=== PATIENT | male | born 1950 | race Caucasian/White ===

== ENCOUNTER 2020-02-02 13:26 | Outpatient (CLI) | payer MEDICARE ==
[~2020-02-02] VITALS: Ht 188 cm; Wt 185.7 kg
[2020-02-02 13:48] VITALS: BP 150/85; PULSE 64; TEMP 97.9
[2020-02-02] MEDS ORDERED: BACTRIM DS 8001 TAB PO (14:08)
[2020-02-02] MEDS ORDERED: FISH OIL1000 MG PO (14:09)
[2020-02-02] MEDS ORDERED: ONE-A-DAY ESSE1 EACH PO (14:09)
[2020-02-02] MEDS ORDERED: CUBICIN 500MG500 MG IV (14:09)
[2020-02-02] MEDS ORDERED: TRULICITY0.75 MG/0. SQ (14:10)
[2020-02-02] MEDS ORDERED: VITAMIN D3400 I1 PO (14:14)
[2020-02-02] MEDS ORDERED: LASIX 80MG TABL80 MG PO (14:15)
[2020-02-02] MEDS ORDERED: AVAPRO300 M1 PO (14:15)
[2020-02-02] MEDS ORDERED: GLUCOPHAGE500 MG/TAB PO (14:15)
[2020-02-02] MEDS ORDERED: ZOCOR 20MG20 MG PO (14:16)
[2020-02-02] MEDS ORDERED: COREG 25MG25 MG/TAB PO (14:35)
[2020-02-02] MEDS ORDERED: TRESIBA FL200 UNIT/1 SQ (14:36)
--- NOTE | 2020-02-02 16:00 | NUR ---
Pt assisted out to 's car by wheelchair with personal belongings and PICC information.
== END 2020-02-02 16:08 | disposition home or self-care (01) ==
LOC: EUO 13:26
DX: Z45.2 Encounter for adjustment and management of vascular access device (principal); E11.621 Type 2 diabetes mellitus with foot ulcer; G62.9 Polyneuropathy, unspecified; M86.9 Osteomyelitis, unspecified; E11.42 Type 2 diabetes mellitus with diabetic polyneuropathy; E11.69 Type 2 diabetes mellitus with other specified complication; L97.509 Non-pressure chronic ulcer of other part of unspecified foot with unspecified severity; Z79.01 Long term (current) use of anticoagulants
CPT/HCPCS: C1751; J0696; J0878

== ENCOUNTER → 2020-02-02 | Outpatient (CLI) | payer MEDICARE ==
[~2020-02-02] MED LIST: AVAPRO300 M1 PO; BACTRIM DS 8001 TAB PO; COREG 25MG25 MG/TAB PO; CUBICIN 500MG500 MG IV; FISH OIL1000 MG PO; GLUCOPHAGE500 MG/TAB PO; LASIX 80MG TABL80 MG PO; ONE-A-DAY ESSE1 EACH PO; TRESIBA FL200 UNIT/1 SQ; TRULICITY0.75 MG/0. SQ; VITAMIN D3400 I1 PO; ZOCOR 20MG20 MG PO
== END ==
LOC: ZCOL.LAB 16:41
DX: E11.621 Type 2 diabetes mellitus with foot ulcer (principal); M86.171 Other acute osteomyelitis, right ankle and foot; L97.509 Non-pressure chronic ulcer of other part of unspecified foot with unspecified severity

== ENCOUNTER → 2021-03-12 | Outpatient (CLI) | payer OTHER | LOC: COL.RAD 08:15 | DX: Z01.89 Encounter for other specified special examinations (principal); M48.061 Spinal stenosis, lumbar region without neurogenic claudication; E27.9 Disorder of adrenal gland, unspecified ==

== ENCOUNTER 2021-06-18 12:56 | Inpatient (IN) | payer OTHER ==
[~2021-06-18] VITALS: Ht 190.5 cm; Wt 170.9 kg
[2021-06-18 13:36] LABS: BASO % 0.2 % (0.0-2.0); EOS # 0.3 K/mm3 (0.0-0.7); EOS % 2.7 % (0.0-4.0); GRAN # 7.3 K/mm3 (1.4-6.5); GRAN % 74.2 % (42.2-75.2); HEMATOCRIT 45.9 % (42.0-52.0); HEMOGLOBIN 15.1 g/dl (13.5-18.0); LYMPH # 1.4 K/mm3 (1.2-3.4); LYMPH % 14.4 % (20.0-51.0); MEAN CELL VOLUME 94 fl (80.0-100.0); MEAN CORPUSCULAR HEMOGLOBIN 31 pg (27-31); MEAN CORPUSCULAR HGB CONC 33 g/dl (33.0-37.0); MEAN PLATELET VOLUME 8.6 fl (7.4-10.4); MONO # 0.8 K/mm3 (0.1-0.6); MONO % 8.2 % (1.7-9.3); PLATELET COUNT 264 K/mm3 (130-400); REDCELL DISTRIBUTION WIDTH-CV 13.2 % (11.5-14.5)
[2021-06-18 13:48] LABS: ALBUMIN 3.4 gm/dL (3.4-4.8); BILIRUBIN,TOTAL 0.6 mg/dL (0.2-1.2); CALCIUM 9.3 mg/dL (8.4-10.2); CREATININE, serum 1.26 mg/dL (0.72-1.25); POTASSIUM 4.7 mmol/L (3.5-4.5); TOTAL PROTEIN 8.1 gm/dL (6.2-8.1)
[2021-06-18 13:54] LABS: TROPONIN-I 0.022 ng/mL (0.00-0.033)
[2021-06-18 15:12] LABS: ARTERIAL BLD GAS O2 SATURATION 92.7 % (92-100); ARTERIAL BLD GAS TCO2 CT 32.3; ARTERIAL BLOOD GAS BASE EXCESS 2.2 (-2-2); ARTERIAL BLOOD GAS HCO3 30.4 meq/L (22-26); ARTERIAL BLOOD GAS PCO2 62.6 mmHg (35-45); ARTERIAL BLOOD GAS PO2 69.6 mmHg (80-100)
--- NOTE | 2021-06-18 19:12 | NUR ---
NO ADVERSE EVENTS DURING SHIFT. PT REMAINS RESTING IN BED, CALL LIGHT IN HAND, BED LOW AND LOCKED. NORMAL SALINE IS RUNNING AT 75 ML/HR. MEDICATIONS ADMINISTERED AND PT EDUCATED. PT REMAINS ON 5L O2 NASAL CANULA. ALERT AND ORIENTED X4. APPEARS DROWSY. NO PAIN REPORTED. SIGNIFICANT LYMPHEDEMA NOTED IN THE BLE. RIGHT FOOT WOUND REMAINS WRAPPED IN COBAIN DRESSING, DRY AND INTACT. VITAL SIGNS ARE WNL. NO CONCERNS AT THIS TIME.
[2021-06-18 20:08] VITALS: BP 142/80; PULSE 66; TEMP 97.6
[2021-06-18] MEDS ORDERED: NORVASC 5MG5 MG/TAB PO (20:08)
[2021-06-18] MEDS ORDERED: CYMBALTA 60MG60 MG PO (20:11)
[2021-06-18] MEDS ORDERED: NEURONTIN100 MG/CAP PO (20:11)
--- NOTE | 2021-06-18 21:00 | NUR ---
PT VERY DROWSY TONIGHT WAKES BREIFLY WHEN ASKED IF HE WANTS TO EAT AND SHOOK HEAD NO AND NODDED BACK OFF. MADELINE JOYNER CALLED FOR INSULIN ORDERS CONSIDERING UNKNOWN WHEN PT ATE LAST TIME. HOLDING INSULIN TONIGHT WILL RECHECK IN AM, BS NOW 138. CALL LIGHT WI REACH. O2 ON.
--- NOTE | 2021-06-18 22:26 | NUR ---
Pt continue to sleep o2 at 90%. increase by 1 to 6 liter N/C.
[2021-06-18 23:07] LABS: COLLECTION METHOD CLEAN CATCH
[2021-06-18 23:18] LABS: MUCOUS Present (NOT PRESENT); PH 5 (5-8); URINE APPEARANCE Cloudy (CLEAR/HAZY); URINE BACTERIA Occasional /hpf (NONE SEEN); URINE BILIRUBIN Negative (NEGATIVE); URINE BLOOD Negative (NEGATIVE); URINE COLOR Yellow (YELLOW); URINE GLUCOSE Negative (NEGATIVE); URINE KETONE Negative (NEGATIVE); URINE LEUKOCYTE ESTERASE 2+ (NEGATIVE); URINE NITRATE Negative (NEGATIVE); URINE PROTEIN(semi-quant) 1+ (NEGATIVE); URINE UROBILINOGEN Negative (NEGATIVE)
[2021-06-19 00:28] VITALS: BP 145/73; PULSE 65; TEMP 97.8
[2021-06-19 04:14] VITALS: BP 151/79; PULSE 74; TEMP 97.8
--- NOTE | 2021-06-19 04:49 | NUR ---
PT WHEEZING THIS AM UPON STARTING NEW IV SITE. MADELINE KAUR, ALIDA [place].
--- NOTE | 2021-06-19 06:13 | NUR ---
PT MORE ALERT THIS AM AND ORIENTATEDX4. DOES NOT REMEMBER LAST NIGHT AND BEING DROWSY. MOHINI HELD BS 123 THIS AM. RT ULCER TO BOTTOM OF HEEL DSG CHANGED. FOUL SMELLING, PT STATES HE SEES WOUND CLINIC AND THE CHANGE DSG WHICH WAS DONE YESTURDAY. IV ACCIDENTAL PULLED OUT RESTART AND AM LABS TO LT FA. CALL LIGHT WI REACH.
[2021-06-19 06:44] LABS: BASO % 0.2 % (0.0-2.0); EOS # 0.3 K/mm3 (0.0-0.7); EOS % 3.1 % (0.0-4.0); GRAN # 5.8 K/mm3 (1.4-6.5); HEMATOCRIT 45.9 % (42.0-52.0); HEMOGLOBIN 14.5 g/dl (13.5-18.0); LYMPH # 1.2 K/mm3 (1.2-3.4); LYMPH % 15.5 % (20.0-51.0); MEAN CELL VOLUME 97 fl (80.0-100.0); MEAN CORPUSCULAR HEMOGLOBIN 31 pg (27-31); MEAN CORPUSCULAR HGB CONC 32 g/dl (33.0-37.0); MEAN PLATELET VOLUME 8.6 fl (7.4-10.4); MONO # 0.7 K/mm3 (0.1-0.6); PLATELET COUNT 258 K/mm3 (130-400); RED BLOOD COUNT 4.73 M/mm3 (4.20-5.60); REDCELL DISTRIBUTION WIDTH-CV 13.1 % (11.5-14.5)
[2021-06-19 07:02] LABS: C-REACTIVE PROTEIN 3.02 mg/dL (0.00-0.50); CALCIUM 9.3 mg/dL (8.4-10.2); CREATININE, serum 0.97 mg/dL (0.72-1.25); MAGNESIUM 1.8 mg/dL (1.6-2.6)
[2021-06-19 07:25] VITALS: BP 152/103; PULSE 81; TEMP 98.1
--- NOTE | 2021-06-19 09:46 | NUR ---
Initial visit; Patient thanked Medical Appointment Clerk for looking in on him and offering God's blessings.
--- NOTE | 2021-06-19 11:03 | NUR ---
0800- shift assessment completed. O2 on @ 5L via nasal cannula. Diminished in all lundberg and bases. No SOB at rest noted. Rt. heel dressing CDI. No drainage noted. Cap refill <3 secs. Denies complaint of pain.
--- NOTE | 2021-06-19 11:06 | NUR ---
0950- Patient urinated for second time this morning. Primary nurse notified.
[2021-06-19 11:27] VITALS: BP 105/52; PULSE 69; TEMP 98.6
--- NOTE | 2021-06-19 11:55 | NUR ---
JODI met with the patient to discuss discharge plan. The patient lives outside of [place] with his , Chicho (h.ph#[phone]/c.ph#[phone]), and their daughter, Maricruz. He reports independence with ADLs and has a walking stick and wheelchair. He states that he primarily uses the wheelchair and is independent with transfers. The patient's PCP is Dr. Shawn Linder and he receives his medications from [facility] in [place]. The patient has his [employer] for his insurance for this stay. He states that he does have Medicare. He reports that he has seen a [facility] provider once and believes it was at the [facility] location. The patient does not have a DPOA-HC, but he was interested in a form. JODI provided. The patient plans on returning home with his family upon discharge. PT/OT are recommending home health. JODI discussed this with the patient and it's benefits. The patient reports that he would have to think about it. He states that he already does his own exercises at home. The patient is currently on 5 liters of oxygen. SW to continue to monitor. *Discharge plan: home with family*
[2021-06-19] MEDS ORDERED: FOLIKA-NC TABL1 EACH PO (13:32)
--- NOTE | 2021-06-19 13:56 | NUR ---
PT LAYING IN BED AT THIS TIME. HE IS STILL VERY DROWSY, BUT AROUSABLE TO SPEECH AND ANSWERS QUESTIONS APPROPRIATELY. DISCUSSED THE NEED FOR BIPAP, AND WILL CONTACT RESPIRATORY TO BRING IT IN FOR HIM IF HE IS WANTING TO SLEEP SO MUCH. THE PATIENT HAS BEEN VERY DROWSY THE MAJORITY OF THIS SHIFT. NO OTHER CONCERNS AT THIS TIME. WILL CONTINUE TO MONITOR.
[2021-06-19 16:55] VITALS: BP 124/68; PULSE 76; TEMP 98.7
--- NOTE | 2021-06-19 19:49 | NUR ---
PT HAS BEEN VERY DROWSY TODAY, DID NOT WANT ANYONE IN HIS ROOM. FAMILY DID VISIT TODAY TO ENCOURAGE HIM TO USE THE BIPAP ORDERED BY PROVIDER. NO OTHER CONCERNS AT THIS TIME. REPORT WAS GIVEN TO TED GILMAN.
[2021-06-19 20:13] VITALS: BP 127/71; PULSE 77; TEMP 98.7
[2021-06-20] VITALS (7 sets, daily range): BP systolic 110–152; BP diastolic 64–130; PULSE 61–80; TEMP 97.6–99
--- NOTE | 2021-06-20 00:20 | NUR ---
PT VERY SLEEPY AT SHIFT CHANGE AND UNTIL NOT LONG AGO. RT CALLED AT BEDTIME FOR BIPAP TO BE ON. HELD INSULIN DUE TO PT NOT WAKING UP TO EAT. TAKING OFF BIPAP SAYING IT HURT HIS FACE TONIGHT, RT TO COME MAKE ADJUSTMENTS, ENC TO LEAVE ON THAT IS WHY HE IS HERE. CALL LIGHT WI REACH. NEEDS MET.
--- NOTE | 2021-06-20 05:36 | NUR ---
Pt is being non-complient. Ref bipap in the middle of the night, o2 5l n/c back on. States it makes loud noises and his face hurt. Rt called and informed. Very drowsy this am will pass on to day shift to assess and give po 07am doxy.
[2021-06-20 06:17] LABS: BASO % 0.1 % (0.0-2.0); EOS # 0.2 K/mm3 (0.0-0.7); EOS % 1.6 % (0.0-4.0); GRAN # 6.8 K/mm3 (1.4-6.5); GRAN % 74.2 % (42.2-75.2); HEMATOCRIT 45.8 % (42.0-52.0); HEMOGLOBIN 14.3 g/dl (13.5-18.0); LYMPH # 1.4 K/mm3 (1.2-3.4); LYMPH % 14.7 % (20.0-51.0); MEAN CELL VOLUME 98 fl (80.0-100.0); MEAN CORPUSCULAR HEMOGLOBIN 31 pg (27-31); MEAN CORPUSCULAR HGB CONC 31 g/dl (33.0-37.0); MEAN PLATELET VOLUME 8.5 fl (7.4-10.4); MONO # 0.8 K/mm3 (0.1-0.6); MONO % 9.1 % (1.7-9.3); PLATELET COUNT 253 K/mm3 (130-400); RED BLOOD COUNT 4.66 M/mm3 (4.20-5.60); REDCELL DISTRIBUTION WIDTH-CV 13.2 % (11.5-14.5)
[2021-06-20 06:33] LABS: CREATININE, serum 1.13 mg/dL (0.72-1.25); POTASSIUM 4.2 mmol/L (3.5-4.5)
[2021-06-21 00:03] VITALS: BP 128/56; PULSE 65; TEMP 97.9
--- NOTE | 2021-06-21 01:24 | NUR ---
Pt found with BIPAP mask off. Pt stated that he has slept a lot today and can't sleep anymore. BIPAP left off but pt instructed to have RN call if he is going to sleep anymore so I can place BIPAP back on him. Tx tolerated well.
--- NOTE | 2021-06-21 03:14 | NUR ---
ASSESSMENT COMPLETE FOR SHIFT. PT RESTING IN BED SLEEP WITH BIPAP ON. PT DENIED PAIN, PALPITATIONS, SOB, N,V,D OR DIZZINESS. PT WORE BIPAP UNTIL ABOUT 0100HRS, THEN TOLD RT HE SLEPT ALL DAY AND MOST OF THE NIGHT AND WOULD NOT BE GOING BACK TO SLEEP, SO HE WOULDN'T NEED THE BIPAP FOR THE REST OF THE NIGHT. AROUND 0200HRS, I WENT IN TO CHECK ON PT, PT FAST ASLEEP. PT EXPRESSED NO OTHER NEEDS AT THIS TIME. CALL LIGHT WITHIN REACH.
[2021-06-21 03:42] VITALS: BP 145/78; PULSE 66; TEMP 97.9
[2021-06-21 07:47] VITALS: BP 152/76; PULSE 77; TEMP 97.9
[2021-06-21] MEDS ORDERED: PROAIR HFA0.09 MG/AC IH (09:45)
[2021-06-21] MEDS ORDERED: OXYGEN (09:46)
--- NOTE | 2021-06-21 10:59 | NUR ---
Assessment completed, alert/oriented, vital signs stable/ afebrile, denies pain or discomfort, heart RRR/ unable to palpate pedal pulses, SR on tele, 3-4 edema to BLE, legs are firm and discolored d/t poor circulation, Lasix being given, wound to right heel/ dressing si C/D/I and was changed 06/20/21, continues on IV ABX, no resp.difficulty noted at rest, he is up in recline, indepdenent in his room denies other needs at thist time
[2021-06-21 11:51] VITALS: BP 137/71; PULSE 70; TEMP 98.6
[2021-06-21 15:58] VITALS: BP 151/80; PULSE 73; TEMP 99.2
--- NOTE | 2021-06-21 16:41 | NUR ---
Shayy from [facility] asks that once the patient is discharged that the EXOX and discharge orders are faxed over to them.
[2021-06-21 19:37] VITALS: BP 140/54; PULSE 71; TEMP 98.6
--- NOTE | 2021-06-22 04:25 | NUR ---
NO CLINICAL CHANGES OVERNIGHT. PT HAD UNEVENTFUL NIGHT THIS SHIFT, STILL REQUIRES SBA TO AMBULATE. ABX ADMINISTERED ORDERED, VSS, 02 REMAINS UNCHANGED, CPAP WORE ENTIRE TONIGHT. ALL NEEDS MET THIS SHIFT. CONTACT PRECAUTIONS REMAIN IN PLACE. CALL LIGHT WITHIN REACH.
[2021-06-22 04:53] VITALS: BP 149/71; PULSE 79; TEMP 98
[2021-06-22 06:53] VITALS: BP 144/69; PULSE 69; TEMP 98.7
[2021-06-22] MEDS ORDERED: CIPRO 500MG TA500 MG PO (08:53)
[2021-06-22] MEDS ORDERED: DOXYCYCLINE 10100 MG PO (08:53)
[2021-06-22] MEDS ORDERED: LASIX 20MG TABL20 MG PO ×2 (08:54→08:57)
[2021-06-22] MEDS ORDERED: PROAIR HFA0.09 MG/AC IH (08:57)
--- NOTE | 2021-06-22 10:38 | NUR ---
PT HAS BEEN EDUCATED REGARDING DISCHARGE INFORMATION. IV REMOVED, PT IS AWAITING TO PICK HIM UP. O2 ORDERED, AND DME IS WAITING ON PATIENT/FAMILY. WOUND IS CLEAN, DRY AND DRESSING IS INTACT. WILL ESCORT OUT WHEN FAMILY ARRIVES FOR DISCHARGE. NO OTHER CONCERNS.
--- NOTE | 2021-06-22 11:16 | NUR ---
PT DENIES ANY NEEDS AT THIS TIME. AWAITING FOR TECHNICAL INTERN.
[2021-06-22 11:40] VITALS: BP 117/64; PULSE 70; TEMP 98.1
--- NOTE | 2021-06-22 12:19 | NUR ---
PT IS HERE, AND HE WILL BE ESCORTED OUT AT THIS TIME BY [facility].
--- NOTE | 2021-06-22 12:57 | NUR ---
JODI faxed over DC orders & exercise oximetry to [facility].
== END 2021-06-22 12:19 | disposition home health service (06) | DRG 193 ==
LOC: COL.ER 12:56 → MEDICAL 15:32
PROVIDERS: Family Medicine; Physician Assistant; ADMIT Internal Medicine
PROC: 5A09357 Assistance with Respiratory Ventilation, Less than 24 Consecutive Hours, Continuous Positive Airway Pressure (ICD-10-PCS; principal; 2021-06-20)
DX: J18.9 Pneumonia, unspecified organism (principal); J96.01 Acute respiratory failure with hypoxia; J96.02 Acute respiratory failure with hypercapnia; E66.2 Morbid (severe) obesity with alveolar hypoventilation; Z68.42 Body mass index [BMI] 45.0-49.9, adult; E11.9 Type 2 diabetes mellitus without complications; L40.9 Psoriasis, unspecified; E78.5 Hyperlipidemia, unspecified; I10 Essential (primary) hypertension; G89.29 Other chronic pain; M54.9 Dorsalgia, unspecified; M48.00 Spinal stenosis, site unspecified; R94.31 Abnormal electrocardiogram [ECG] [EKG]; D17.79 Benign lipomatous neoplasm of other sites; L08.9 Local infection of the skin and subcutaneous tissue, unspecified; B96.4 Proteus (mirabilis) (morganii) as the cause of diseases classified elsewhere; B95.62 Methicillin resistant Staphylococcus aureus infection as the cause of diseases classified elsewhere; B95.7 Other staphylococcus as the cause of diseases classified elsewhere; B95.2 Enterococcus as the cause of diseases classified elsewhere; B96.89 Other specified bacterial agents as the cause of diseases classified elsewhere; Z20.822 Contact with and (suspected) exposure to COVID-19; Z87.891 Personal history of nicotine dependence; Z79.4 Long term (current) use of insulin
CPT/HCPCS: 99223-AI; 99232-AI; 99239; A9284; J0692; J0696; J1650; J1815; J7030; Q9967